=== PATIENT | male | born 1935 | race Caucasian/White ===

== ENCOUNTER 2018-12-21 06:45 | Day surgery (SDC) | payer MEDICARE ==
[2018-12-21 07:13] VITALS: BMI 29.2
[2018-12-21] MEDS ORDERED: Lactated Ringer's 500 ML IV SCH (07:30)
[2018-12-21] MEDS ORDERED: Propofol 10 mg/ml Inj (20 ML) ONE (08:10)
[2018-12-21] MEDS ORDERED: Lactated Ringer's 500 ML IV ONE (08:40)
[2018-12-21 09:17] VITALS: TEMP 96.8
[2018-12-21 09:27] VITALS: O2SAT 100
[2018-12-21 10:00] VITALS: BP 108/66; PULSE 51; RESP 15
== END 2018-12-21 10:00 | disposition home or self-care (01) ==
LOC: C.ENDO 06:45
PROVIDERS: ATTEND Internal Medicine Gastroenterology
DX: D12.2 Benign neoplasm of ascending colon (principal); K64.8 Other hemorrhoids; K57.90 Diverticulosis of intestine, part unspecified, without perforation or abscess without bleeding
CPT/HCPCS: 45380; 88305; J2001; J2704; J7120